=== PATIENT | female | born 1980 | race Caucasian/White ===

== ENCOUNTER 2017-11-25 22:14 | Emergency (ER) | payer MEDICAID ==
[2017-11-25] MEDS: ACETAMINOPHEN 500 MG TAB PO (23:42)
[2017-11-25] MEDS: KETOROLAC 60 MG INJ IM (23:46)
== END 2017-11-26 00:05 | disposition home or self-care (01) ==
LOC: FTE 11-26 00:05
DX: H65.03 Acute serous otitis media, bilateral (principal); J06.9 Acute upper respiratory infection, unspecified
CPT/HCPCS: 81025; 96372; 99284-25